=== PATIENT | male | born 1985 | race Two or more races ===

== ENCOUNTER 2024-07-05 09:05 | Emergency (ER) | payer OTHER ==
[~2024-07-05] VITALS: Ht 170.2 cm; Wt 79.2 kg
[2024-07-05 09:36] VITALS: BP 144/95; PULSE 85; RESP 16; TEMP 99.6; O2SAT 96
[2024-07-05] MEDS: LIDOCAINE 1% HCL (LOCAL ANESTH.) INJ 20ML MDV IJ ONE (09:43)
--- NOTE | 2024-07-05 09:47 | ED.PDOC ---
Foreign Body HPI Comments A 38 YEAR OLD MALE PRESENTS TO THE ED WITH COMPLAINT OF FOREIGN BODY OF LEFT HAND. 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 PATIENT REPORTS HE HAS BEEN UNABLE TO REMOVE THE NAIL AND WOULD LIKE TO HAVE IT REMOVED TODAY IN THE ED. BLEEDING IS CONTROLLED AT THIS TIME. PATIENT DENIES FEVER, CHILLS, SHORTNESS OF BREATH, CHEST PAIN, ABDOMINAL PAIN, NAUSEA, VOMITING, HEADACHE, OR OTHER COMPLAINTS. NO OTHER SYMPTOMS OR MODIFYING FACTORS AT THIS TIME. PATIENT IS ALERT, ORIENTED X 4, AND HAS STEADY GAIT. Chief Complaint: Foreign Body Time Seen by MD: 09:19 History of Present Illness: Nurses Notes, Medications, Allergies Allergies: Coded Allergies: NO KNOWN ALLERGIES (Unverified , 07/05/24) Information Source: Patient Mode of Arrival: Ambulatory Timing: Hours Duration: Since onset, Hours Severity: Moderate Prehospital treatment: None Location: Left (LEFT HAND) Context: Accidental Foreign Body: Other (NAIL) Removal: Was attempted, Was not successful Associated signs and symptoms: None Past Medical History PAST MEDICAL HISTORY: Denies Surgical History: Denies all surgeries Family History Family History: Reviewed,noncontributory to illness Social History Smoker: Non-Smoker Alcohol: Denies ETOH Use Drugs: Denies Drug Use Lives In: Home Constitutional: denies: chills, diaphoresis, fatigue, fever, malaise, sweats, weakness, others EENTM: denies: blurred vision, double vision, ear bleeding, ear discharge, ear drainage, ear pain, ear ringing, eye pain, eye redness, hearing loss, mouth pain, mouth swelling, nasal discharge, nose bleeding, nose congestion, nose pain, photophobia, tearing, throat pain, throat swelling, voice changes, others Respiratory: denies: cough, hemoptysis, orthopnea, SOB at rest, shortness of breath, SOB with excertion, stridor, wheezing, others Cardiovascular: denies: chest pain, dizzy spells, diaphoresis, Dyspnea on exertion, edema, irregular heart beat, left arm pain, lightheadedness, palpitations, PND, syncope, others Gastrointestinal: denies: abdomen distended, abdominal pain, blood streaked bowels, constipated, diarrhea, dysphagia, difficulty swallowing, hematemesis, melena, nausea, poor appetite, poor fluid intake, rectal bleeding, rectal pain, vomiting, others Genitourinary: denies: burning, dysuria, flank pain, frequency, hematuria, incontinence, penile discharge, penile sore, pain, testicle pain, testicle swelling, urgency, others Neurological: denies: dizziness, fainting, headache, left sided numbness, left sided weakness, numbness, paresthesia, pre-existing deficit, right sided numbness, right sided weakness, seizure, speech problems, tingling, tremors, weakness, others Musculoskeletal: reports: muscle pain; denies: back pain, gout, joint pain, joint swelling, muscle stiffness, neck pain, others Integumetry: reports: wounds (PUNCTURE WOUND ON LEFT HAND ), others (FOREIGN BODY OF LEFT HAND); denies: bruises, change in color, change in hair/nails, dryness, laceration, lesions, lumps, rash Allergic/Immunocompromised: denies: Difficulty Healing, Frequent Infections, Hives, Itching, others Hematologic/Lymphatic: denies: anemia, blood clots, easy bleeding, easy bruising, swollen glands, others Endocrine: denies: excessive hunger, excessive sweating, excessive thirst, excessive urination, flushing, intolerance to cold, intolerance to heat, unexplained weight gain, unexplained weight loss, others Psychiatric: denies: anxiety, bipolar disorder, depression, hopeless, panic disorder, schizophrenia, sleepless, suicidal, others All Other Systems: Reviewed and Negative Physical Exam General Appearance: No Apparent Distress, Normal HEENT: Normal ENT Inspection, PERRL/EOMI, Pharynx Normal, TMs Normal Neck: Full Range of Motion, Non-Tender, Normal, Normal Inspection Respiratory: Chest Non-Tender, Lungs Clear, No Accessory Muscle Use, No Respiratory Distress, Normal Breath Sounds Cardiovascular: No Edema, No JVD, No Murmur, No Gallop, Normal Peripheral Pulses, Regular Rate/Rhythm Breast Exam: Deferred Gastrointestinal: No Organomegaly, Non Tender, No Pulsatile Mass, Normal Bowel Sounds, Soft Genitalia: Deferred Pelvic: Deferred Rectal: Deferred Extremities: No calf tenderness, Normal capillary refill, Normal range of motion, No pedal edema, Tender (WITH A NAIL FB STUCK ON LEFT HAND FROM THE DORSAL HAND TO VOLAR HAND, NO BONY TENDERNESS, SWELLING AND DEFORMITY. 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 ) Peripheral Pulses: 2+ carotid (R), 2+ carotid (L), 2+ Radial (R), 2+ Radial (L) Lymphatic: No Adenopathy Was a procedure done? Was a procedure done?: Yes Sedation Sedation?: No Foreign Body Removal Foreign body in: Skin (LEFT HAND) Anesthetic: Lidocaine, Without Epi Prep: Prep, Saline, Betadine, Irrigation Procedure: Identified (FB OF LEFT HAND ), Removed (LIDOCAINE WAS APPLIED TO THE PATIENT'S LEFT HAND AND NAIL WAS SUCCESSFULLY REMOVED. PATIENT'S WOUND WAS THEN CLEANED USING NORMAL SALINE AND THEN STERILE GAUZE WAS THEN APPLIED.) Informed consent obtained: No Risks/benefits/alt described: Yes FB Differential Dx Differential Diagnosis: Foreign Body X-Ray, Labs, Meds, VS Vital Signs Date Time Temp Pulse Resp B/P (MAP) Pulse Ox O2 Delivery O2 Flow Rate FiO2 07/05/24 09:36 85 16 96 Room Air 07/05/24 09:36 99.6 85 16 144/95 (111) 96 99.6 07/05/24 09:19 99.6 85 16 144/95 (111) 96 Current Medications Medications (Trade) Dose Ordered Sig/Jenny Route Start Time Stop Time Status Last Admin Ibuprofen (Motrin Tablet) 800 mg ONCE ONCE PO 07/05/24 10:15 07/05/24 10:16 07/05/24 10:11 X-Ray, Labs, Meds, VS Comment EXTERNAL MEDICAL RECORDS REVIEWED: [NONE] INDEPENDENT HISTORIANS: [NONE] SOCIAL DETERMINANTS OF HEALTH: [NONE] LABS ORDERED: NONE REVIEWED AND INTERPRETED RESULTS: NONE IMAGING ORDERED: NONE TREATMENTS ORDERED: MOTRIN 800MG PO PROCEDURES PERFORMED: NONE CRITICAL CARE TIME: NONE I HAVE DISCUSSED THE PATIENT WITH THE ATTENDING PHYSICIAN DR. WALKER AND HE AGREES WITH THE PATIENT'S PLAN OF CARE AND DISPOSITION. BASED ON HISTORY OF PRESENT ILLNESS, AND PHYSICAL EXAM, PATIENT WILL BE DISCHARGED HOME. DISCUSSED PLAN FOR DISCHARGE HOME WITH RX KEFLEX. MEDICATION WARNINGS GIVEN. SHARED DECISION MAKING: DISCUSSED WITH PATIENT THAT THEIR WORKUP WAS NORMAL. PATIENT INSTRUCTED TO FOLLOW UP WITH PRIMARY CARE PROVIDER IN 1-2 DAYS FOR RE- EVALUATION OF SYMPTOMS. PATIENT VERBALIZES UNDERSTANDING TO RETURN TO ED FOR NEW OR WORSENING SYMPTOMS OR IF FOLLOW UP WITH PCP CANNOT BE OBTAINED. PATIENT FEELS COMFORTABLE GOING HOME AT THIS TIME. ALL QUESTIONS ADDRESSED AT TIME OF DISCHARGE. Time of 1ST Reevaluation: 10:20 Reevaluation 1ST: Improved Patient Education/Counseling: Diagnosis, Treatment, Need For Follow Up Family Education/Counseling: Diagnosis, Treatment, Need For Follow Up Medical Screening: No EMC Exist At This Time Departure 1 Departure Time of Disposition: 10:30 Impression: Primary Impression: History of retained foreign body fully removed Additional Impression: Puncture wound of left hand Qualified Codes: S61.442A - Puncture wound with foreign body of left hand, initial encounter Disposition: HOME / SELF CARE / HOMELESS Condition: Stable Additional Instructions: FOLLOW-UP WITH PCP IN 1 TO 2 DAYS. TAKE MEDICATIONS PRESCRIBED. RETURN TO ED FOR ANY NEW OR WORSENING SYMPTOMS. Written Prescriptions KEFLEX 500MG AND NAPROXEN 500MG Discharged With: Self Critical Care Note Critical Care Time?: No Stability Stability form required: No I personally scribed for DREW MCDANIELS ([email or web address]) on 07/05/24 at 09:47. Electronically submitted by Carter Taveras ([email or web address]). I personally scribed for DREW MCDANIELS ([email or web address]) on 07/05/24 at 09:53. Electronically submitted by Carter Taveras ([email or web address]). DREW MCDANIELS Jul 05, 2024 09:47
[2024-07-05] MEDS: IBUPROFEN 800 MG TAB PO ONE (10:11)
== END 2024-07-05 10:13 | disposition home or self-care (01) ==
LOC: ER 09:05
DX: S61.432A Puncture wound without foreign body of left hand, initial encounter (principal); Z87.821 Personal history of retained foreign body fully removed; W29.4XXA Contact with nail gun, initial encounter; Y93.89 Activity, other specified; Y92.89 Other specified places as the place of occurrence of the external cause; Y99.0 Civilian activity done for income or pay
CPT/HCPCS: 99284; J2003